=== PATIENT | male | born 1990 | race African-American/Black ===

== ENCOUNTER 2019-12-14 19:06 | Emergency (ER) | payer SELFPAY ==
[~2019-12-14] VITALS: Ht 180.3 cm; Wt 122.5 kg
[2019-12-14] MEDS ORDERED: ALBUTEROL SULF 2.5 MG/0.5ML(0.5%) NEB SOLN NEB ONE (19:30)
[2019-12-14] MEDS ORDERED: IPRATROPIUM BROM 0.5 MG/2.5ML INH SOL NEB ONE (19:30)
[2019-12-14 20:01] LABS: Basophils # (auto) 0 10 ^3/uL (0-0.2); Basophils % (auto) 0.3 % (0.0-2.0); Eosinophils # (auto) 0.1 10 ^3/uL (0-0.8); Eosinophils % (auto) 0.4 % (0.0-7.0); Hematocrit 49.1 % (41.0-53.0); Hemoglobin 16.8 g/dL (13.5-17.5); Lymphocytes # (auto) 2.1 10 ^3/uL (0.4-5.4); Lymphocytes % (auto) 14.9 % (10.0-50.0); Mean Corpuscular Hemoglobin 29.5 pg (28.0-32.0); Mean Corpuscular Hgb Conc. 34.3 g/dL (32.0-36.0); Mean Corpuscular Volume 86.3 fL (80.0-100.0); Monocytes # (auto) 1.8 10 ^3/uL (0-1.3); Monocytes % (auto) 12.4 % (0.0-12.0); Neutrophils # (auto) 10.4 10 ^3/uL (1.6-8.6); Nucleated Red Blood Cells % 0.1 %; Platelet Count (auto) 200 10^3/uL (140-450); Red Blood Cells 5.69 10^6/uL (4.5-5.90); Red Cell Distribution Width 13.4 % (11.8-14.3); White Blood Cell 14.4 10^3/uL (4.4-10.8)
[2019-12-14 20:11] LABS: Calcium 9.3 mg/dL (8.5-10.1); Chloride 105 mmol/L (98-107); Potassium 3.6 mmol/L (3.5-5.1); Sodium 135 mmol/L (136-145)
[2019-12-14 20:14] LABS: Alanine Aminotransferase 33 U/L (16-61); Albumin 4.1 g/dL (3.4-5.0); Anion Gap 5 (5-15); Aspartate Aminotransferase 14 U/L (15-37); BUN/Creatinine Ratio 12.6; Blood Urea Nitrogen 13 mg/dL (7-18); Carbon Dioxide 25 mmol/L (21-32); GFR African American 108 mL/min; GFR Non-African American 90 mL/min; Glucose 91 mg/dL (74-106)
[2019-12-14 20:19] LABS: Alkaline Phosphatase 104 U/L (45-117); Bilirubin, Total 1.2 mg/dL (0.2-1.0); Total Protein 8.4 g/dL (6.4-8.2)
[2019-12-14] MEDS ORDERED: methylPREDNISolone SOD SUCC 125 MG/2 ML VL IV ONE (20:30)
[2019-12-14] MEDS: ALBUTEROL SULF 2.5 MG/0.5ML(0.5%) NEB SOLN ONE ×2 (20:34→20:38)
[2019-12-14] MEDS ORDERED: levoFLOXacin 250 MG TAB PO ONE (21:15)
[2019-12-14 23:02] VITALS: BP 128/60
== END 2019-12-14 23:45 | disposition home or self-care (01) ==
LOC: ER 19:06
DX: J06.9 Acute upper respiratory infection, unspecified (principal); D72.829 Elevated white blood cell count, unspecified; F17.210 Nicotine dependence, cigarettes, uncomplicated; F12.10 Cannabis abuse, uncomplicated
CPT/HCPCS: 36415; 71046; 80053; 84484; 85025; 93005; 94640; 94644; 99285; J2930; J7644

== ENCOUNTER 2024-03-07 10:35 | Emergency (ER) | payer MEDICAID ==
[~2024-03-07] VITALS: Ht 182.9 cm; Wt 140.0 kg
[2024-03-07 12:03] LABS: Basophils # (auto) 0.1 10 ^3/uL (0-0.2); Basophils % (auto) 0.5 % (0.0-2.0); Eosinophils # (auto) 0 10 ^3/uL (0-0.8); Eosinophils % (auto) 0.4 % (0.0-7.0); Hematocrit 49.8 % (41.0-53.0); Hemoglobin 16.3 g/dL (13.5-17.5); Lymphocytes # (auto) 1.5 10 ^3/uL (0.4-5.4); Lymphocytes % (auto) 12.8 % (10.0-50.0); Mean Corpuscular Hemoglobin 28.2 pg (28.0-32.0); Mean Corpuscular Hgb Conc. 32.8 g/dL (32.0-36.0); Neutrophils # (auto) 8.9 10 ^3/uL (1.6-8.6); Neutrophils % (auto) 77.3 % (37.0-80.0); Red Blood Cells 5.79 10^6/uL (4.5-5.90); Red Cell Distribution Width 14.5 % (11.8-14.3); White Blood Cell 11.5 10^3/uL (4.4-10.8)
[2024-03-07 12:14] LABS: Chloride 104 mmol/L (98-107); Potassium 4.1 mmol/L (3.5-5.1); Sodium 136 mmol/L (136-145)
[2024-03-07 12:15] LABS: Anion Gap 3 (5-15); Calcium 10.1 mg/dL (8.5-10.1); Carbon Dioxide 29 mmol/L (20-30)
[2024-03-07] MEDS: DexAMETHasone SOD PHOS 4 MG/1ML SDV INJ IM ONE (12:19)
[2024-03-07 12:20] VITALS: BP 138/98; PULSE 87; RESP 18; TEMP 98.5; O2SAT 97
[2024-03-07 12:20] LABS: BUN/Creatinine Ratio 8.3 (10.0-20.0); Blood Urea Nitrogen 9 mg/dL (9-23); Glucose 91 mg/dL (74-106)
[2024-03-07] MEDS ORDERED: DEX4T PO (12:49)
[2024-03-07] MEDS ORDERED: ZOFR4T PO (13:35)
== END 2024-03-07 13:48 | disposition home or self-care (01) ==
LOC: ER 10:35
DX: G51.0 Bell's palsy (principal); I10 Essential (primary) hypertension; F17.210 Nicotine dependence, cigarettes, uncomplicated; F15.10 Other stimulant abuse, uncomplicated; Z86.718 Personal history of other venous thrombosis and embolism
CPT/HCPCS: 36415; 70450; 80048; 85025; 96372; 99285; J1100

== ENCOUNTER 2024-03-24 12:35 | Emergency (ER) | payer MEDICAID ==
[~2024-03-24] VITALS: Ht 182.9 cm; Wt 130.0 kg
[~2024-03-24 12:35] MED LIST: DEX4T PO; ZOFR4T PO
[2024-03-24] MEDS: DexAMETHasone SOD PHOS 10MG/1ML VIAL INJ IM ONE (13:28)
[2024-03-24 13:33] VITALS: BP 103/80; PULSE 75; RESP 17; TEMP 98.7; O2SAT 94
[2024-03-24] MEDS ORDERED: IBUP-1455 PO (15:12)
[2024-03-24] MEDS ORDERED: ACET500T58 PO (15:12)
[2024-03-24] MEDS ORDERED: AZIT4SOL LEFTEYE (15:12)
[2024-03-24] MEDS ORDERED: [UNRECOGNIZED DRUG - CODE] OP (15:12)
== END 2024-03-24 15:37 | disposition home or self-care (01) ==
LOC: EDBD 12:35 → ER 12:50
DX: H11.422 Conjunctival edema, left eye (principal); G51.0 Bell's palsy; F17.210 Nicotine dependence, cigarettes, uncomplicated; F15.90 Other stimulant use, unspecified, uncomplicated; Z79.899 Other long term (current) drug therapy
CPT/HCPCS: 70480; 96372; 99285; J1100

== ENCOUNTER 2024-03-27 13:40 | Emergency (ER) | payer MEDICAID ==
[~2024-03-27] VITALS: Ht 182.9 cm; Wt 114.0 kg
[~2024-03-27 13:40] MED LIST changes: +ACET500T58 PO; +AZIT4SOL LEFTEYE; +IBUP-1455 PO; +[UNRECOGNIZED DRUG - CODE] OP
[2024-03-27 15:07] LABS: Basophils # (auto) 0 10 ^3/uL (0-0.2); Basophils % (auto) 0.5 % (0.0-2.0); Eosinophils # (auto) 0.1 10 ^3/uL (0-0.8); Eosinophils % (auto) 1.4 % (0.0-7.0); Hemoglobin 15.9 g/dL (13.5-17.5); Lymphocytes # (auto) 2.1 10 ^3/uL (0.4-5.4); Lymphocytes % (auto) 24.4 % (10.0-50.0); Mean Corpuscular Hemoglobin 28.8 pg (28.0-32.0); Mean Corpuscular Hgb Conc. 33.2 g/dL (32.0-36.0); Mean Corpuscular Volume 86.9 fL (80.0-100.0); Monocytes # (auto) 0.9 10 ^3/uL (0-1.3); Monocytes % (auto) 9.9 % (0.0-12.0); Neutrophils # (auto) 5.6 10 ^3/uL (1.6-8.6); Neutrophils % (auto) 63.8 % (37.0-80.0); Nucleated Red Blood Cells % 0.1 %; Red Blood Cells 5.53 10^6/uL (4.5-5.90); Red Cell Distribution Width 14.7 % (11.8-14.3); White Blood Cell 8.7 10^3/uL (4.4-10.8)
[2024-03-27] MEDS: cloNIDine HCL 0.1 MG TAB PO ONE (15:07)
[2024-03-27] MEDS: HYDROcodone-ACET 10/325MG TAB PO ONE (15:07)
[2024-03-27 15:29] LABS: Alanine Aminotransferase 52 U/L (7-40); Albumin 4.2 g/dL (3.2-4.8); Alkaline Phosphatase 91 U/L (46-116); Anion Gap 1 (5-15); Aspartate Aminotransferase 16 U/L (13-40); Blood Urea Nitrogen 13 mg/dL (9-23); Calcium 9.8 mg/dL (8.7-10.4); Carbon Dioxide 32 mmol/L (20-30); Chloride 107 mmol/L (98-107); Glucose 100 mg/dL (74-106); Potassium 4.4 mmol/L (3.5-5.1); Sodium 140 mmol/L (136-145)
[2024-03-27 15:30] LABS: Bilirubin, Total 0.4 mg/dL (0.2-1.0); Total Protein 6.8 g/dL (5.7-8.2)
[2024-03-27 16:08] VITALS: BP 148/100; PULSE 78; RESP 17; TEMP 98.7; O2SAT 97
== END 2024-03-27 16:35 | disposition home or self-care (01) ==
LOC: ER 13:40
DX: I10 Essential (primary) hypertension (principal); R51.9 Headache, unspecified; F17.210 Nicotine dependence, cigarettes, uncomplicated; F12.10 Cannabis abuse, uncomplicated
CPT/HCPCS: 36415; 70450; 80053; 85025